=== PATIENT | female | born 1970 | race Caucasian/White ===

== ENCOUNTER 2023-03-24 20:01 | Emergency (ER) | payer OTHER, BC ==
[~2023-03-24] VITALS: Ht 177.8 cm; Wt 113.0 kg
[2023-03-24] MEDS ORDERED: LEVOTHYROXINE137 MC1 PO (20:19)
[2023-03-24] MEDS ORDERED: AMOX TR-K CLV1 EAC1 PO (21:27)
[2023-03-24 21:47] VITALS: BP 145/97
== END 2023-03-24 21:50 | disposition home or self-care (01) ==
LOC: ED 20:01
DX: S61.432A Puncture wound without foreign body of left hand, initial encounter (principal); W20.8XXA Other cause of strike by thrown, projected or falling object, initial encounter; E03.9 Hypothyroidism, unspecified; Z23 Encounter for immunization; Z88.1 Allergy status to other antibiotic agents; Z88.5 Allergy status to narcotic agent
CPT/HCPCS: 73130; 90715